=== PATIENT | female | born 1935 | race Two or more races ===

== ENCOUNTER 2016-11-19 09:20 | Emergency (ER) | payer MEDICARE, OTHER ==
[~2016-11-19] VITALS: Ht 157.5 cm; Wt 89.0 kg
[2016-11-19 09:22] VITALS: Ht 157.5 cm; Wt 89.0 kg
[2016-11-19] MEDS ORDERED: KETOROLAC 30 MG INJ IV STA (09:35)
[2016-11-19] MEDS ORDERED: SOD CHLORIDE 0.9% 500 ML IV STA (09:35)
[2016-11-19 10:22] LABS: BASOPHILS % 0.4 % (0.0-2.0); EOSINOPHILS # 0.2 10^3/ul (0.0-0.5); HEMATOCRIT 47.7 % (37.0-47.0); HEMOGLOBIN 15.7 g/dl (12.0-16.0); LYMPHOCYTES # 1.7 10^3/ul (0.8-2.9); LYMPHOCYTES % 23.1 % (15.0-51.0); MEAN CORPUSCULAR HEMOGLOBIN 30.1 pg (29.0-33.0); MEAN CORPUSCULAR HGB CONC 32.9 g/dl (32.0-37.0); MEAN CORPUSCULAR VOLUME 91.4 fl (82.0-101.0); MEAN PLATELET VOLUME 11.3 fl (7.4-10.4); MONOCYTE # 0.5 10^3/ul (0.3-0.9); MONOCYTES % 6.1 % (0.0-11.0); NEUTROPHILS % 67.1 % (39.0-77.0); PLATELET COUNT 244 10^3/UL (140-415); RED BLOOD COUNT 5.22 10^6/ul (4.20-5.40); RED CELL DISTRIBUTION WIDTH 13.9 % (11.5-14.5); WHITE BLOOD COUNT 7.4 10^3/ul (4.8-10.8)
[2016-11-19 10:36] LABS: ALBUMIN 4.5 g/dl (3.3-4.9); ALBUMIN/GLOBULIN RATIO 1.15; BILIRUBIN,INDIRECT 0.4 mg/dl (0-1.1); BILIRUBIN,TOTAL 0.4 mg/dl (0.2-1.3); CALCIUM 9.6 mg/dl (8.4-10.2); CREATININE 0.91 mg/dl (0.44-1.00); TOTAL PROTEIN 8.4 g/dl (6.1-8.1)
[2016-11-19 10:39] LABS: ADD UMIC YES; UR ASCORBIC ACID NEGATIVE (NEGATIVE); UR BACTERIA FEW /HPF (NONE SEEN); UR BILIRUBIN (Dip) NEGATIVE (NEGATIVE); UR BLOOD (Dip) 1+ mg/dL (NEGATIVE); UR CLARITY SLIGHTLY CLOUDY (CLEAR); UR COLOR YELLOW (YELLOW); UR GLUCOSE (Dip) 3+ mg/dL (NEGATIVE); UR KETONES (Dip) NEGATIVE (NEGATIVE); UR LEUKOCYTE ESTERASE (Dip) 2+ Leu/ul (NEGATIVE); UR NITRITE (Dip) NEGATIVE (NEGATIVE); UR RBC 1 /HPF (0-5); UR SPECIFIC GRAVITY (Dip) 1.022 (1.003-1.030); UR SQUAMOUS EPITHELIAL CELL FEW /HPF (FEW); UR TOTAL PROTEIN (Dip) NEGATIVE (NEGATIVE); UR UROBILINOGEN (Dip) NEGATIVE (NEGATIVE)
--- NOTE | 2016-11-19 11:00 | RADRPT ---
PROCEDURE: CT Abdomen and Pelvis without contrast. CLINICAL INDICATION: Left flank pain TECHNIQUE: CT scan of the abdomen and pelvis without contrast was performed on a multidetector hig h-resolution CT scanner. The patient was scanned without intravenous contrast. Coronal and sagittal reformatted images were obtained from the axial source images. Images were reviewed on a high-resol [employer] PACS workstation. The total exam CTDI equals 21.22 mGy and the total exam DLP equals 1246.77 m Gy-cm. One or more of the following dose reduction techniques were used: Automated exposure control. Adjustment of the mA and/or kV according to patient size. Use of iterative reconstruction technique. COMPARISON: None FINDINGS: CT abdomen: The lung bases are remarkable for hypoventilatory changes and scattered atelectasis. The heart size is normal, without pericardial thickening or effusion. The liver is normal in size and density without focal mass or intrahepatic biliary dilatation. The spleen is normal in size and homogeneous in density. The stomach is partially collapsed, but is gr ossly unremarkable. The pancreas as visualized is normal. The gallbladder is remarkable for a few sub centimeter gallstones. There is no evidence for biliary dilatation. The adrenal glands are symm etric and normal. The kidneys are normal in size with no hydronephrosis. There is no urolithiasis. The aorta is of normal caliber. Aortic vascular calcifications are present. There is no retroperit osborne lymphadenopathy. The terry hepatis region is clear. The bowel and mesentery, as visualized, are equally unremarkable. There is a small hiatal hernia. There is an epigastric hernia containing small segment of the anterior wall of the transverse colon and fat. There is no evidence of bowel obstruction or strangulation. CT pelvis: The small bowel loops situated within the pelvis are unremarkable. Pessary is identified in the car edward. The pelvic organs are normal. The pelvic sidewalls and inguinal regions are clear. The sigmoi d colon and rectum are unremarkable. No mass, lymphadenopathy, or free fluid is seen. No acute inf lammation is seen. The surrounding osseous structures are remarkable for multilevel advanced degene rative spondylosis of the lower thoracic and lumbar spine. No osteolytic or osteoblastic lesion is detected. There is levoconvex scoliosis centered at L3. IMPRESSION: 1. No urolithiasis. No hydronephrosis para 2. Cholelithiasis without evidence of acute cholecystitis. 3. Epigastric hernia containing a small segment of the anterior wall of the transverse colon with n o strangulation or bowel obstruction. 4. Small hiatal hernia. 5. Aortoiliac atherosclerosis. 6. Mild levoconvex scoliosis centered at L3 with multilevel lumbar spondylosis RPTAT: BB .Silvestre Waters MD, MD Date Time Electronically viewed and signed by .Silvestre Waters MD, on 11/19/2016 11:00 .O/
[2016-11-19] MEDS ORDERED: NITR-58 PO (11:08)
--- NOTE | 2016-11-19 11:08 | ERD ---
ER Documentation Chief Complaint Date/Time DATE: 11/19/16 TIME: 11:06 Chief Complaint lower back pain x 2 weeks HPI This is an 81-year-old female who presents to the emergency room for evaluation of lower back pain for the past 2 weeks. The patient localizes the pain to the left lower portion of her back and describes as achy pain worse with movement of her torso. She denies any painful urination, urinary frequency or fevers associated with this. She denies any nausea, vomiting or diarrhea. The patient was brought in for evaluation by her family members were concerned. ROS All systems reviewed and are negative except as per history of present illness. Allergies Allergies: Coded Allergies: No Known Allergy (Unverified , 11/19/16) PMhx/Soc Hx Cardiac Disorders: Yes (htn) Hx Miscellaneous Medical Probl: Yes (DM II, arthritis) Hx Alcohol Use: No Hx Substance Use: No Hx Tobacco Use: No Smoking Status: Never smoker Physical Exam Vitals Vital Signs Date Time Temp Pulse Resp B/P Pulse Ox O2 Delivery O2 Flow Rate FiO2 11/19/16 09:22 98.5 78 18 154/67 99 Physical Exam INITIAL VITAL SIGNS: Reviewed by me GENERAL: The patient is well developed and appropriate for usual state of health in no apparent distress HEENT: Pupils equal, round, and reactive to light. EOMI. There is no scleral icterus. NECK: C-spine is soft and supple, there is no meningismus. There is no cervical lymphadenopathy. LUNGS: Clear to auscultation bilaterally. There are no rales, wheezes or rhonchi. HEART: Regular rate and rhythm, no murmurs, clicks, rubs or gallops. ABDOMEN: Soft CVAT, soft, non-tender, non-distended. There are bowel sounds in all four quadrants. No rebound or guarding. EXTREMITIES: There is no peripheral cyanosis or edema. No focal swelling or erythema. NEUROLOGICAL: The patient moves all four extremities with 5/5 strength. Cranial nerves II - XII are intact. Normal gait. Alert and oriented SKIN: There is no apparent rash or petechiae. HEME/LYMPHATIC: There is no evidence of excessive bruising or lymphedema. PSYCHIATRIC: The patient does not appear anxious or depressed. Result Diagram: 11/19/16 1007 11/19/16 1007 Results 24 hrs Laboratory Tests Test 11/19/16 10:07 White Blood Count 7.410^3/ul Red Blood Count 5.2210^6/ul Hemoglobin 15.7g/dl Hematocrit 47.7% Mean Corpuscular Volume 91.4fl Mean Corpuscular Hemoglobin 30.1pg Mean Corpuscular Hemoglobin Concent 32.9g/dl Red Cell Distribution Width 13.9% Platelet Count 77337^3/UL Mean Platelet Volume 11.3fl Neutrophils % 67.1% Lymphocytes % 23.1% Monocytes % 6.1% Eosinophils % 3.0% Basophils % 0.4% Nucleated Red Blood Cells % 0.0/100WBC Neutrophils # 5.010^3/ul Lymphocytes # 1.710^3/ul Monocytes # 0.510^3/ul Eosinophils # 0.210^3/ul Basophils # 0.010^3/ul Nucleated Red Blood Cells # 0.010^3/ul Urine Color YELLOW Urine Clarity SLIGHTLY CLOUDY Urine pH 5.0 Urine Specific Curtis 1.022 Urine Ketones NEGATIVEmg/dL Urine Nitrite NEGATIVEmg/dL Urine Bilirubin NEGATIVEmg/dL Urine Urobilinogen NEGATIVEmg/dL Urine Leukocyte Esterase 2+Luz/ul Urine Microscopic RBC 1/HPF Urine Microscopic WBC 4/HPF Urine Squamous Epithelial Cells FEW/HPF Urine Bacteria FEW/HPF Urine Hemoglobin 1+mg/dL Urine Glucose 3+mg/dL Urine Total Protein NEGATIVEmg/dl Sodium Level 145mmol/L Potassium Level 4.0mmol/L Chloride Level 109mmol/L Carbon Dioxide Level 25mmol/L Anion Gap 15 Blood Urea Nitrogen 31mg/dl Creatinine 0.91mg/dl Glucose Level 181mg/dl Calcium Level 9.6mg/dl Total Bilirubin 0.4mg/dl Direct Bilirubin 0.00mg/dl Indirect Bilirubin 0.4mg/dl Aspartate Amino Transf (AST/SGOT) 26IU/L Alanine Aminotransferase (ALT/SGPT) 19IU/L Alkaline Phosphatase 121IU/L Total Protein 8.4g/dl Albumin 4.5g/dl Globulin 3.90g/dl Albumin/Globulin Ratio 1.15 Lipase 47U/L Current Medications Medications (Trade) Dose Ordered Sig/Gricelda Route PRN Reason Start Time Stop Time Status Last Admin Dose Admin Sodium Chloride (NS) 500 ml @ 500 mls/hr Q1H STAT IV 11/19/16 09:35 11/19/16 10:34 DC 11/19/16 10:33 Ketorolac Tromethamine (Toradol) 30 mg ONCE STAT IV 11/19/16 09:35 11/19/16 09:38 DC 11/19/16 10:33 Procedures/MDM CT abdomen pelvis without: 1. No urolithiasis. No hydronephrosis para 2. Cholelithiasis without evidence of acute cholecystitis. 3. Epigastric hernia containing a small segment of the anterior wall of the transverse colon with no strangulation or bowel obstruction. 4. Small hiatal hernia. 5. Aortoiliac atherosclerosis. 6. Mild levoconvex scoliosis centered at L3 with multilevel lumbar spondylosis This 81-year-old female presents to the ER for evaluation of lower back pain. The patient did have tenderness to palpation on my examination. Lab work was obtained and a urinalysis was obtained which does show some white blood cells in the urine. She does have 2+ leukocyte esterase. She has no fevers or no chills. At this could be from a urine infection however I feel muscular pain is more likely the cause as this patient's pain has almost completely resolved with Toradol. The patient does have a home health nurse coming to evaluate her today to receive help at home. The patient was given 1 g Rocephin will be discharged home with a prescription for Macrobid to take over the course of the next 3 days. Departure Diagnosis: Primary Impression: Acute cystitis Additional Impression: Back pain Condition: Stable MEGA FREITAS DO Nov 19, 2016 11:08
[2016-11-19] MEDS ORDERED: CEFTRIAXONE 1 GM/50 ML (PMX) 50 ML IVPB ONE (11:30)
[2016-11-19] MEDS ORDERED: LINA145C PO (11:54)
[2016-11-19] MEDS ORDERED: CANA100T PO (11:54)
[2016-11-19] MEDS ORDERED: PLEC3TAB PO (11:56)
[2016-11-19] MEDS ORDERED: CARV6.25 PO (11:57)
[2016-11-19] MEDS ORDERED: GLIP-160 PO (11:59)
[2016-11-19] MEDS ORDERED: ALEN70TA30 PO (11:59)
[2016-11-19] MEDS ORDERED: VALS1TAB78 PO (12:00)
[2016-11-19] MEDS ORDERED: FURO40TA4 PO (12:01)
[2016-11-19] MEDS ORDERED: HYDR-3010 PO (12:01)
[2016-11-19] MEDS ORDERED: EZET10TA3 PO (12:01)
[2016-11-19 12:32] VITALS: BP 129/78; PULSE 81; RESP 17; TEMP 98.5
== END 2016-11-19 12:33 | disposition home or self-care (01) ==
LOC: E/R 09:20
DX: N30.00 Acute cystitis without hematuria (principal); E11.9 Type 2 diabetes mellitus without complications; I10 Essential (primary) hypertension
CPT/HCPCS: 36415; 74176; 80053; 81001; 83690; 85025; 96374; 96375; 99285; J0696; J1885; J7040